=== PATIENT | female | born 1950 | race African-American/Black ===

== ENCOUNTER 2020-04-03 05:57 | Day surgery (SDC) | payer BC ==
[2020-04-02 09:00] VITALS: BMI 29.2
[2020-04-03] MEDS ORDERED: MIDAZOLAM HCL 2 MG/2 ML SINGLE DOSE VIAL ONE (06:58)
[2020-04-03] MEDS ORDERED: SUCCINYLCHOLINE CHLORIDE 200 MG/10 ML SYRINGE ONE (06:58)
[2020-04-03] MEDS ORDERED: PROPOFOL 20 ML ONE (06:58)
[2020-04-03] MEDS ORDERED: BUPIVACAINE HCL/PF 0.25% (2.5MG/ML) 10 ML VIAL ONE (07:11)
[2020-04-03] MEDS ORDERED: LIDOCAINE HCL 1%, 10 MG/ML (20ML VIAL) ONE (07:12)
[2020-04-03] MEDS ORDERED: methylPREDNISolone ACET (DEPO) 40 MG/1 ML VIAL ONE (07:43)
[2020-04-03] MEDS ORDERED: ceFAZolin SODIUM 1 GM VIAL ONE (07:50)
[2020-04-03] MEDS ORDERED: DEXAMETHASONE SOD PHOSPHATE 4 MG/1 ML VIAL ONE (07:52)
[2020-04-03] MEDS ORDERED: KETOROLAC TROMETHAMINE 30 MG/1 ML VIAL ONE (07:52)
[2020-04-03] MEDS ORDERED: ONDANSETRON 4 MG/2 ML VIAL ONE (07:52)
[2020-04-03] MEDS ORDERED: LIDOCAINE HCL 1%, 10 MG/ML (20ML VIAL) NR ONE (08:05)
[2020-04-03] MEDS ORDERED: BUPIVACAINE HCL/PF 0.25% (2.5MG/ML) 10 ML VIAL IJ ONE (08:05)
[2020-04-03] MEDS ORDERED: oxyCODONE HCL 5 MG TABLET PO PRN (08:50)
[2020-04-03] MEDS ORDERED: ACETAMINOPHEN 325 MG TABLET (FP) PO PRN (08:50)
[2020-04-03] MEDS ORDERED: ONDANSETRON 4 MG/2 ML VIAL IVPUSH PRN (08:50)
[2020-04-03 08:54] VITALS: BP 143/83; PULSE 77; TEMP 98.2
[2020-04-03] MEDS ORDERED: LACTATED RINGERS SOLUTION 1,000 ML IV SCH (09:00)
--- NOTE | 2020-04-04 09:49 | OP ---
DATE OF OPERATION: 04/03/2020 SURGEON: Dr. Dann Ramirez STONE FABRICATOR: CELSO Van PREOPERATIVE DIAGNOSES: 1. Right carpal tunnel syndrome. 2. Right ring finger trigger finger/tenosynovitis. POSTOPERATIVE DIAGNOSES: 1. Right carpal tunnel syndrome. 2. Right ring finger trigger finger/tenosynovitis. PROCEDURE: 1. [place] [address]. 2. Right 4th finger right hand trigger finger release. CPT code 12619-U. FINDINGS: 1. Thickened transverse carpal ligament with impingement upon median nerve. 2. Thickened A1 sharlene with pressure on flexor tendons and minor fraying. PROCEDURE: Under sterile conditions, right the upper extremity was prepped and draped in a sterile fashion. Incision was made along the longitudinal portion of the carpal tunnel. A longitudinal incision was made along the proximal portion of the palm, following the palm crease. This was taken down to the transcarpal ligament, which was released initially with scalpel and then extended proximally and distally using blunt tenotomy scissors. The median nerve was identified and completely released from impingement by the transcarpal ligament. The wound was then irrigated with copious amounts of irrigation. Skin was closed with 5-0 nylon in single interrupted sutures. After the carpal tunnel release, an incision was made on the A1 sharlene of the 4th finger. This was marked prior to the start of surgery. Tendon sheath was identified and A1 sharlene was identified. Incision was made and then extended proximally and distally using blunt tenotomy scissors. Wound was irrigated with copious amounts of irrigation. Curved hemostat was placed around the tendons. Minor fraying was debrided. Irrigation was performed once again and then closed with 4-0 nylon single interrupted sutures. The PA listed above was present and assisted at surgery. Their presence was absolutely medically necessary for the completion of the procedure. They helped hold the arthroscopy, pass instruments (and implants when indicated) and the procedure could not have been completed without their assistance. DANN RAMIREZ M.D. [id number]
== END 2020-04-03 09:20 | disposition home or self-care (01) ==
LOC: FASU 05:57
PROVIDERS: ATTEND Orthopaedic Surgery
PROC: 01N50ZZ Release Median Nerve, Open Approach (ICD-10-PCS; principal; 2020-04-03 07:30)
PROC: 0LN70ZZ Release Right Hand Tendon, Open Approach (ICD-10-PCS; 2020-04-03 07:30)
DX: G56.01 Carpal tunnel syndrome, right upper limb (principal); M65.341 Trigger finger, right ring finger; M65.841 Other synovitis and tenosynovitis, right hand; I10 Essential (primary) hypertension; E11.9 Type 2 diabetes mellitus without complications; E78.5 Hyperlipidemia, unspecified; E03.9 Hypothyroidism, unspecified
CPT/HCPCS: 82962

== ENCOUNTER 2020-08-28 06:09 | Day surgery (SDC) | payer BC ==
[2020-08-24 17:33] VITALS: BMI 28.5
[2020-08-28] MEDS ORDERED: ROPIVACAINE HCL 0.5% 30ML VIAL ONE (06:51)
[2020-08-28] MEDS ORDERED: MIDAZOLAM HCL 2 MG/2 ML SINGLE DOSE VIAL ONE ×2 (06:51→08:28)
[2020-08-28] MEDS ORDERED: EPINEPHrine 1:1,000 1 MG/1 ML - 30ML VIAL (INJECTION) ONE (07:23)
[2020-08-28] MEDS ORDERED: SUCCINYLCHOLINE CHLORIDE 200 MG/10 ML SYRINGE ONE (07:52)
[2020-08-28] MEDS ORDERED: PROPOFOL 20 ML ONE ×2 (07:52)
[2020-08-28] MEDS ORDERED: PROMETHAZINE HCL 25 MG/1 ML VIAL IVPUSH PRN (08:56)
[2020-08-28] MEDS ORDERED: ONDANSETRON 4 MG/2 ML VIAL IVPUSH PRN (08:56)
[2020-08-28] MEDS ORDERED: oxyCODONE HCL 5 MG TABLET PO PRN ×2 (08:56)
[2020-08-28 11:34] VITALS: TEMP 98.2
[2020-08-28 11:35] VITALS: BP 132/72; PULSE 60
== END 2020-08-28 10:45 | disposition home or self-care (01) ==
LOC: FASU 06:09
PROVIDERS: ATTEND Orthopaedic Surgery
PROC: 0RNK4ZZ Release Left Shoulder Joint, Percutaneous Endoscopic Approach (ICD-10-PCS; 2020-08-28)
PROC: 0RBK4ZZ Excision of Left Shoulder Joint, Percutaneous Endoscopic Approach (ICD-10-PCS; 2020-08-28)
PROC: 0RCK4ZZ Extirpation of Matter from Left Shoulder Joint, Percutaneous Endoscopic Approach (ICD-10-PCS; 2020-08-28)
PROC: 0RCK4ZZ Extirpation of Matter from Left Shoulder Joint, Percutaneous Endoscopic Approach (ICD-10-PCS; 2020-08-28)
PROC: 0LQ24ZZ Repair Left Shoulder Tendon, Percutaneous Endoscopic Approach (ICD-10-PCS; principal; 2020-08-28 08:18)
DX: M75.122 Complete rotator cuff tear or rupture of left shoulder, not specified as traumatic (principal); M75.02 Adhesive capsulitis of left shoulder; M75.42 Impingement syndrome of left shoulder; S43.432A Superior glenoid labrum lesion of left shoulder, initial encounter; X58.XXXA Exposure to other specified factors, initial encounter; Y93.9 Activity, unspecified; Y92.9 Unspecified place or not applicable; M24.012 Loose body in left shoulder
CPT/HCPCS: 82962; 88300-TC; 88304-TC; 94760

== ENCOUNTER 2022-07-22 06:16 | Day surgery (SDC) | payer BC ==
[2022-07-18 11:55] VITALS: BMI 27.4
[2022-07-22] MEDS ORDERED: LIDOCAINE HCL 2% (20ML MULTI-DOSE VIAL) ONE ×2 (07:00→08:10)
[2022-07-22] MEDS ORDERED: PROPOFOL 40 ML ONE (07:48)
[2022-07-22] MEDS ORDERED: ceFAZolin SODIUM 1 GM VIAL ONE (07:57)
[2022-07-22] MEDS ORDERED: methylPREDNISolone ACET (DEPO) 40 MG/1 ML VIAL ONE (07:58)
[2022-07-22] MEDS ORDERED: MIDAZOLAM HCL 2 MG/2 ML SINGLE DOSE VIAL ONE (08:02)
[2022-07-22] MEDS ORDERED: ONDANSETRON 4 MG/2 ML VIAL IVPUSH PRN (08:37)
[2022-07-22] MEDS ORDERED: ACETAMINOPHEN 325 MG TABLET (FP) PO PRN (08:37)
[2022-07-22] MEDS ORDERED: LACTATED RINGERS SOLUTION 1,000 ML IV SCH (08:45)
[2022-07-22 10:23] VITALS: RESP 17; TEMP 97.8
[2022-07-22 10:32] VITALS: BP 168/85; PULSE 74
== END 2022-07-22 09:40 | disposition home or self-care (01) ==
LOC: FASU 06:16
PROVIDERS: ATTEND Orthopaedic Surgery
PROC: 0LN70ZZ Release Right Hand Tendon, Open Approach (ICD-10-PCS; 2022-07-22)
PROC: 0LN70ZZ Release Right Hand Tendon, Open Approach (ICD-10-PCS; principal; 2022-07-22 08:13)
DX: M65.321 Trigger finger, right index finger (principal); M65.331 Trigger finger, right middle finger; M65.9 Synovitis and tenosynovitis, unspecified
CPT/HCPCS: 82962; 94760